=== PATIENT | female | born 1995 | race Caucasian/White ===

== ENCOUNTER 2024-01-26 15:19 | Emergency (ER) | payer OTHER ==
[~2024-01-26] VITALS: Ht 180.3 cm; Wt 87.1 kg
[2024-01-26] MEDS ORDERED: Ondansetron HCl 2 MG / ML 2ML Vial IV ONE (15:45)
[2024-01-26 16:17] LABS: BASOPHILS ABSOLUTE AUTO 0.06 K/mm3 (0.00-0.23); BASOPHILS PERCENT AUTO 1 % (0-2); EOSINOPHILS ABSOLUTE AUTO 0.15 K/mm3 (0.00-0.68); EOSINOPHILS PERCENT AUTO 2 % (0-6); Hemoglobin 14.1 g/dL (11.5-16.0); IMMATURE GRAN ABSOLUTE AUTO 0.03 K/mm3 (0.00-0.10); IMMATURE GRAN PERCENT AUTO 0 % (0-1); LYMPHOCYTES ABSOLUTE AUTO 1.78 K/mm3 (0.84-5.20); LYMPHOCYTES PERCENT AUTO 20 % (21-46); MONOCYTES ABSOLUTE AUTO 0.67 K/mm3 (0.16-1.47); MONOCYTES PERCENT AUTO 8 % (4-13); Mean Corpuscular HGB 31.3 pg (26.0-34.0); Mean Corpuscular HGB Conc 33.6 g/dL (31.5-36.5); Mean Corpuscular Volume 93 fL (80-100); Mean Platelet Volume 10.8 fL (9.1-12.4); NEUTROPHILS ABSOLUTE AUTO 6.02 K/mm3 (1.96-9.15); NEUTROPHILS PERCENT AUTO 69 % (41-73); Platelet Count 215 K/mm3 (150-400); RDW Coefficient Variation 12.5 % (11.7-14.2); RDW Standard Deviation 42.8 fL (35.1-46.3); White Blood Cell Count 8.71 K/mm3 (4.00-11.30)
[2024-01-26] MEDS ORDERED: Metoclopramide HCl 10 MG Tab PO ONE (16:40)
[2024-01-26 16:54] LABS: Albumin, Blood 3.8 g/dL (3.4-5.0); Albumin/Globulin Ratio 1.1 (0.8-1.8); Bilirubin, Total 0.4 mg/dL (0.1-1.0); Bun/Creatinine Ratio 10.5 (12.0-20.0); Calcium, Blood 8.8 mg/dL (8.5-10.1); Creatinine, Blood 0.86 mg/dL (0.40-1.00); Globulin, Blood 3.4 g/dL (2.2-4.0); Potassium, Blood 3.7 mmol/L (3.5-5.5); Total Protein, Blood 7.2 g/dL (6.4-8.2)
[2024-01-26] MEDS ORDERED: ARIPiprazole 10 MG Tab PO ONE (18:25)
[2024-01-26] MEDS ORDERED: OLANZapine 5 MG Tab PO ONE (18:25)
[2024-01-26] MEDS ORDERED: HyDROXyzine HCl 25 MG Tab PO ONE (18:25)
[2024-01-26] MEDS ORDERED: TraZODone HCl 50 MG Tab PO ONE (18:25)
[2024-01-26] MEDS ORDERED: HYDHCL25 PO (18:45)
[2024-01-26] MEDS ORDERED: TRAZ50 PO (18:45)
[2024-01-26] MEDS ORDERED: OLAN5 PO (18:45)
[2024-01-26] MEDS ORDERED: ABILIFY MYCITE5 M2 PO (18:45)
== END 2024-01-26 18:48 | disposition home or self-care (01) ==
LOC: ER 15:19
PROVIDERS: Physician Assistant
DX: R11.2 Nausea with vomiting, unspecified (principal); Z76.0 Encounter for issue of repeat prescription; Z88.0 Allergy status to penicillin; Z88.1 Allergy status to other antibiotic agents; Z88.5 Allergy status to narcotic agent; Z88.8 Allergy status to other drugs, medicaments and biological substances
CPT/HCPCS: 80053; 84703; 85025; 99282; A9270